=== PATIENT | female | born 1990 | race Two or more races ===

== ENCOUNTER 2021-10-01 23:57 | Emergency (ER) | payer OTHER ==
[~2021-10-01] VITALS: Ht 157.5 cm; Wt 81.6 kg
[2021-10-02] MEDS ORDERED: KETO10TA2 PO (01:21)
== END 2021-10-02 ==
LOC: ER 23:57
DX: M94.0 Chondrocostal junction syndrome [Tietze] (principal); R07.89 Other chest pain

== ENCOUNTER 2022-10-19 16:25 | Emergency (ER) | payer OTHER ==
[~2022-10-19] VITALS: Ht 157.5 cm; Wt 83.0 kg
[~2022-10-19 16:25] MED LIST: KETO10TA2 PO
== END 2022-10-19 17:59 | disposition home or self-care (01) ==
LOC: ER 16:25
DX: M62.830 Muscle spasm of back (principal); M54.50 Low back pain, unspecified

== ENCOUNTER 2023-07-16 09:06 | Emergency (ER) | payer OTHER ==
[~2023-07-16] VITALS: Ht 157.5 cm; Wt 82.6 kg
== END 2023-07-16 09:37 | disposition home or self-care (01) ==
LOC: ER 09:06
DX: M54.89 Other dorsalgia (principal)

== ENCOUNTER 2023-07-20 08:22 | Emergency (ER) | payer OTHER ==
[~2023-07-20] VITALS: Ht 157.5 cm; Wt 82.6 kg
== END 2023-07-20 11:03 | disposition home or self-care (01) ==
LOC: ER 08:23
DX: M54.89 Other dorsalgia (principal); Z87.09 Personal history of other diseases of the respiratory system